=== PATIENT | female | born 2000 | race Caucasian/White ===

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

== ENCOUNTER → 2022-11-26 | Outpatient (CLI) | payer BC | LOC: M WUC 08:20 | PROVIDERS: ATTEND Student in an Organized Health Care Education/Training Program | DX: M79.672 Pain in left foot (principal) ==

== ENCOUNTER → 2023-05-26 | Outpatient (REF) | payer BC | LOC: M SFHCWAGY 17:32 | PROVIDERS: ATTEND Advanced Practice Midwife | DX: Z12.4 Encounter for screening for malignant neoplasm of cervix (principal) ==

== ENCOUNTER → 2024-12-13 | Outpatient (CLI) | payer BC | LOC: M WHC 13:16 | PROVIDERS: ATTEND Advanced Practice Midwife | DX: N63.0 Unspecified lump in unspecified breast (principal) ==

== ENCOUNTER → 2025-03-19 | Outpatient (CLI) | payer BC | LOC: M RAD 17:35 | PROVIDERS: ATTEND Student in an Organized Health Care Education/Training Program | DX: M25.571 Pain in right ankle and joints of right foot (principal) ==

== ENCOUNTER → 2025-04-04 | Outpatient (CLI) | payer BC | LOC: M RAD 07:11 | PROVIDERS: ATTEND Physician Assistant Medical | DX: R19.5 Other fecal abnormalities (principal) ==

== ENCOUNTER → 2025-04-18 | Outpatient (REF) | payer BC | LOC: M PLALAB 14:11 | PROVIDERS: ATTEND Advanced Practice Midwife | DX: Z12.4 Encounter for screening for malignant neoplasm of cervix (principal) ==

== ENCOUNTER → 2025-06-04 | Outpatient (REF) | payer BC | LOC: M LAB REF 12:00 | PROVIDERS: ATTEND Physician Assistant Medical | DX: D51.8 Other vitamin B12 deficiency anemias (principal) ==